=== PATIENT | male | born 1995 | race Caucasian/White ===

== ENCOUNTER 2017-06-30 23:40 | Emergency (ER) | payer BC ==
[2017-07-01] MEDS ORDERED: Aspirin Low Dose CHEW TAB* 81 MG PO ONE (01:00)
[2017-07-01] MEDS ORDERED: Pantoprazole TAB (NF) 40 MG TAB PO ONE (01:01)
[2017-07-01] MEDS ORDERED: Omeprazole CAP* 20 MG ONE (01:28)
[2017-07-01 01:42] LABS: Hematocrit 44 % (42-52); Hemoglobin 14.3 g/dl (14.0-18.0); Mean Corpuscular HGB Conc 33 g/dl (31-36); Mean Corpuscular Hemoglobin 29 pg (27-31); Mean Corpuscular Volume 88 fL (80-94); Mean Platelet Volume 9 um3 (7.4-10.4); Red Blood Count 4.98 10^6/ul (4.0-5.4); Red Cell Distribution Width 14 % (10.5-15)
[2017-07-01 01:58] LABS: Albumin 4.6 g/dL (3.2-5.2); BUN/Creatinine Ratio 13.2 (8-20); Calcium 10.1 mg/dL (8.6-10.3); EGFR African American 115.7 (>60); Potassium 3.6 mmol/L (3.5-5.0); Total Bilirubin 0.7 mg/dL (0.2-1.0); Total Protein 7.6 g/dL (6.4-8.9)
[2017-07-01] MEDS ORDERED: Omeprazole CAP* 20 MG PO ONE (02:00)
[2017-07-01 02:14] VITALS: BP 118/71
--- NOTE | 2017-07-01 04:42 | ED ---
Roland Mohr Rebecca, scribed for DarronDameon on 07/01/17 at 0054 . HPI Chest Pain - HPI Summary HPI Summary: Pt is a 21 y/o M who presents to ED c/o CP. Pain began yesterday at 1530 and is located in the lower sternal region. Pain is currently moderate, ranked 6/10 and characterized as burning. Sx aggravated and alleviated by nothing, unchanged by Tums and Maalox. PMHx fast resting heart rate. - History of Current Complaint Chief Complaint: EDGeneral Time Seen by Provider: 07/01/17 00:21 Hx Obtained From: Patient, Family/Appraiser [employer] Onset/Duration: Started Hours Ago, Still Present Time of Onset: 15:30 Current Severity: Moderate Pain Intensity: 6 Pain Scale Used: 0-10 Numeric Chest Pain Location: Lower Sternal Character: Burning Aggravating Factor(s): Nothing Alleviating Factor(s): Nothing Associated Signs and Symptoms: Positive: Chest Pain - Allergy/Home Medications Allergies/Adverse Reactions: Allergies Allergy/AdvReac Type Severity Reaction Status Date / Time Codeine Allergy Hives Verified 06/30/17 23:50 PMH/Surg Hx/FS Hx/Imm Hx Endocrine/Hematology History: Denies: Hx Diabetes Cardiovascular History: Reports: Other Cardiovascular Problems/Disorders - Hx fast resting heart rate Infectious Disease History: No Infectious Disease History: Denies: Traveled Outside the [place] in Last 30 Days - Family History Known Family History: Positive: Hypertension - Social History Alcohol Use: None Substance Use Type: Reports: None Smoking Status (MU): Never Smoked Tobacco Review of Systems Constitutional: Negative Eyes: Negative ENT: Negative Positive: Chest Pain Positive: Shortness Of Breath Positive: Abdominal Pain Genitourinary: Negative Musculoskeletal: Negative Skin: Negative Neurological: Negative Psychological: Normal All Other Systems Reviewed And Are Negative: Yes Physical Exam - Summary Physical Exam Summary: Appearance: Well appearing, no pain distress Skin: warm, dry, reflects adequate perfusion Head/face: normal Eyes: EOMI, THALIA ENT: normal Neck: supple, non-tender Respiratory: CTA, breath sounds present Cardiovascular: RRR, pulses symmetrical Abdomen: non-tender, soft Bowel: present Musculoskeletal: normal, strength/ROM intact Neuro: normal, sensory motor intact, A&Ox3 Triage Information Reviewed: Yes Vital Signs On Initial Exam: Initial Vitals Temp Pulse Resp BP Pulse Ox 98.5 F 71 18 123/72 100 06/30/17 23:46 06/30/17 23:46 06/30/17 23:46 06/30/17 23:46 06/30/17 23:46 Vital Signs Reviewed: Yes Diagnostics - Vital Signs Vital Signs Temp Pulse Resp BP Pulse Ox 06/30/17 23:46 98.5 F 71 18 123/72 100 - Laboratory Lab Results: Lab Results 07/01/17 07/01/17 07/01/17 Range/Units 01:27 01:27 01:27 WBC 12.0 H (3.5-10.8) 10^3/ul RBC 4.98 (4.0-5.4) 10^6/ul Hgb 14.3 (14.0-18.0) g/dl Hct 44 (42-52) % MCV 88 (80-94) fL MCH 29 (27-31) pg MCHC 33 (31-36) g/dl RDW 14 (10.5-15) % Plt Count 255 (150-450) 10^3/ul MPV 9 (7.4-10.4) um3 Neut % (Auto) 72.8 (38-83) % Lymph % (Auto) 16.9 L (25-47) % [place] % (Auto) 8.6 (1-9) % Eos % (Auto) 1.2 (0-6) % Baso % (Auto) 0.5 (0-2) % Absolute Neuts (auto) 8.7 H (1.5-7.7) 10^3/ul Absolute Lymphs (auto) 2.0 (1.0-4.8) 10^3/ul Absolute Monos (auto) 1.0 H (0-0.8) 10^3/ul Absolute Eos (auto) 0.1 (0-0.6) 10^3/ul Absolute Basos (auto) 0.1 (0-0.2) 10^3/ul Absolute Nucleated RBC 0 10^3/ul Nucleated RBC % 0 Sodium 136 (133-145) mmol/L Potassium 3.6 (3.5-5.0) mmol/L Chloride 101 (101-111) mmol/L Carbon Dioxide 27 (22-32) mmol/L Anion Gap 8 (2-11) mmol/L BUN 14 (6-24) mg/dL Creatinine 1.06 (0.67-1.17) mg/dL Est GFR ( Amer) 115.7 (>60) Est GFR (Non-Af Amer) 90.0 (>60) BUN/Creatinine Ratio 13.2 (8-20) Glucose 91 (70-100) mg/dL Lactic Acid 0.9 (0.5-2.0) mmol/L Calcium 10.1 (8.6-10.3) mg/dL Total Bilirubin 0.70 (0.2-1.0) mg/dL AST 18 (13-39) U/L ALT 16 (7-52) U/L Alkaline Phosphatase 61 (34-104) U/L Troponin I 0.00 (<0.04) ng/mL Total Protein 7.6 (6.4-8.9) g/dL Albumin 4.6 (3.2-5.2) g/dL Globulin 3.0 (2-4) g/dL Albumin/Globulin Ratio 1.5 (1-3) Lipase 34 (11.0-82.0) U/L Result Diagrams: 07/01/17 01:27 07/01/17 01:27 Lab Statement: Any lab studies that have been ordered have been reviewed, and results considered in the medical decision making process. - Radiology CXR Xray Interpretation: No Acute Changes Radiology Interpretation Completed By: ED Physician - EKG 0134 Cardiac Rate: NL - 66 bpm EKG Rhythm: Sinus Rhythm EKG Interpretation: NO acute changes Re-Evaluation - Re-Evaluation First Eval Re-Evaluation Time: 02:03 Comment: Discussed results with pt. Chest Pain Course/Dx - Course Assessment/Plan: Pt is a 21 y/o M who presents to ED c/o CP since yesterday at 1530 and is located in the lower sternal region. Pain is currently moderate, ranked 6/10 and characterized as burning. Sx unchanged by Tums and Maalox. PMHx fast resting heart rate. CXR reveals no acute findings. EKG is sinus rhythm with no acute findings. Troponin of 0.00. In the ED course, pt was given Prilosec and ASA. Pt will be D/C to home with Dx of atypical chest pain, r/o GERD and questionable GERD with Rx for Protonix with a follow up with GI and his PCP. He is agreeable with this plan. Allergy noted. Pt medications reviewed. - Chest Pain Differential Diagnosis/HQI/PQRI: Acute SD, Chest Wall, GI Disease - Diagnoses Provider Diagnoses: Atypical chest pain, questionable GERD, r/o GERD Discharge - Discharge Plan Condition: Stable Disposition: HOME Prescriptions: Pantoprazole TAB (NF) [Protonix TAB (NF)] 40 mg PO DAILY #30 tab Patient Education Materials: Chest Pain (ED), Gastroesophageal Reflux Disease ( ED) Referrals: Non Staff,Doctor [Primary Care Provider] - 3 Days Mal Tony MD [Medical Doctor] - Additional Instructions: RETURN TO ED FOR ANY RETURNING OR WORSENING SYMPTOMS. The documentation as recorded by the Roland mcgraw Rebecca accurately reflects the service I personally performed and the decisions made by Darron trujillo Emmanuel.
--- NOTE | 2017-07-01 08:10 | RAD ---
INDICATION: Chest pain COMPARISON: None TECHNIQUE: PA and lateral dual-energy views were obtained. FINDINGS: Bones/Soft Tissues: There are no acute bony findings. Cardiomediastinal: The cardiomediastinal silhouette is normal. Lungs: There are no infiltrates. Pleura: There are no pleural effusions. Other: None IMPRESSION: NO ACTIVE DISEASE.
== END 2017-07-01 02:14 | disposition home or self-care (01) ==
LOC: ED 23:40
DX: R07.89 Other chest pain (principal); R06.02 Shortness of breath; R10.9 Unspecified abdominal pain
CPT/HCPCS: 36415; 71020; 80053; 83605; 83690; 84484; 85025; 93005; 99283; A9270-GY

== ENCOUNTER 2017-10-04 00:40 | Emergency (ER) | payer BC ==
[2017-10-04] MEDS ORDERED: Lidocaine 2% VISCOUS* 15 ML UDC PO ONE (02:12)
[2017-10-04] MEDS ORDERED: Al Hydrox/Mg Hydrox/Simet LIQ* 30 ML UDC PO ONE (02:12)
[2017-10-04] MEDS ORDERED: Omeprazole CAP* 20 MG PO ONE (02:13)
--- NOTE | 2017-10-04 02:19 | ED ---
GI/ HPI - HPI Summary HPI Summary: Patient here with "heartburn" - epigastric pain that radiates up into his chest. Reports he ate pizza with lots of meat on it last night at [employer]. This is when his symptoms started and have been persistent since. He's tried eating Tums without relief. He reports he has a history of GERD and does not take a PPI although he was encouraged to f/u w/ a GI provider. He has tried Maalox in the past without much relief. Denies shortness of breath, cough, sore throat, jaw pain, arm pain, fatigue, nausea, vomiting, diarrhea, hematochezia. Admits he drinks lots of coffee, ETOH on the weekends and does not use tobacco products. Does not use NSAIDs. - History of Current Complaint Chief Complaint: EDAbdPain Time Seen by Provider: 10/04/17 01:58 Stated Complaint: HEARTBURN Hx Obtained From: Patient Pain Intensity: 7 - Allergy/Home Medications Allergies/Adverse Reactions: Allergies Allergy/AdvReac Type Severity Reaction Status Date / Time MS Codeine [Codeine] Allergy Hives Verified 06/30/17 23:50 PMH/Surg Hx/FS Hx/Imm Hx Previously Healthy: Yes Endocrine/Hematology History: Denies: Hx Anticoagulant Therapy, Hx Blood Disorders, Hx Diabetes, Hx Anemia , Hx Unexplained Bleeding Cardiovascular History: Reports: Other Cardiovascular Problems/Disorders - Hx fast resting heart rate - takes metoprolol GI History: Reports: Hx Gastroesophageal Reflux Disease - no treatment - continues to eat foods intermittently that trigger his GERD Infectious Disease History: No Infectious Disease History: Denies: Traveled Outside the [place] in Last 30 Days - Family History Known Family History: Positive: Hypertension - Social History Occupation: Student Lives: Dormitory/Roommates Alcohol Use: Occasionally Hx Substance Use: No Substance Use Type: Reports: None Hx Tobacco Use: No Smoking Status (MU): Never Smoked Tobacco Review of Systems Constitutional: Negative Eyes: Negative ENT: Negative Cardiovascular: Negative Respiratory: Negative Positive: Abdominal Pain Positive: no symptoms reported Musculoskeletal: Negative Skin: Negative Neurological: Negative Psychological: Normal All Other Systems Reviewed And Are Negative: Yes Physical Exam Triage Information Reviewed: Yes Vital Signs On Initial Exam: Initial Vitals Temp Pulse Resp BP Pulse Ox 97.8 F 70 14 123/65 99 10/04/17 01:12 10/04/17 01:12 10/04/17 01:12 10/04/17 01:12 10/04/17 01:12 Vital Signs Reviewed: Yes Appearance: Positive: Well-Appearing, Well-Nourished, Pain Distress - Mild Skin: Positive: Warm, Skin Color Reflects Adequate Perfusion, Dry Head/Face: Positive: Normal Head/Face Inspection Eyes: Positive: Normal, EOMI, Conjunctiva Clear - Anicteric sclera ENT: Positive: Normal ENT inspection, Hearing grossly normal, Pharynx normal - Mucosa moist Neck: Positive: Supple Respiratory/Lung Sounds: Positive: Clear to Auscultation, Breath Sounds Present Cardiovascular: Positive: Normal, RRR, S1, S2 Abdomen Description: Positive: Soft, Other: - Epigastric and left upper quadrant tenderness to palpation; rectal exam neg for blood Bowel Sounds: Positive: Present Musculoskeletal: Positive: Normal, Strength/ROM Intact Neurological: Positive: Normal, Sensory/Motor Intact, Alert, Oriented to Person Place, Time, CN Intact II-III Psychiatric: Positive: Normal - Concerned but pleasant and cooperative Diagnostics - Vital Signs Vital Signs Temp Pulse Resp BP Pulse Ox 10/04/17 01:12 97.8 F 70 14 123/65 99 - Laboratory Result Diagrams: 10/04/17 03:30 10/04/17 03:30 Lab Statement: Any lab studies that have been ordered have been reviewed, and results considered in the medical decision making process. Re-Evaluation - Re-Evaluation First Eval Change: Worse - pt reports pain is worse since GI cocktail GIGU Course/Dx - Course Course Of Treatment: Patient here with epigastric pain radiating into chest since last night after eating greasy meal pizza from [employer]. Reports he has a history of GERD and this feels similar. Has been trying Tums without relief. Reports he has had GERD in the past and was told to follow up with a hide house supervisor. He has not done so yet. He also does not take PPIs. He drinks copious amounts of coffee. Denies fevers chills nausea vomiting diarrhea. Has had normal urinary void and bowel movements without hematochezia or dark tarry stools. Also denies use of NSAIDs. Given his history, he was trialed on a course of Prilosec with GI cocktail. Patient reports his pain became much worse after ingesting these medications so no abdominal workup was ordered. + Vazquez's sign. Diff dx: ulcer, cholelithiasis, pancreatitis, hiatal hernia, GI bleed (unlikely acute given stable vitals). He is in stable condition and will be signed out to Dr. Acevedo. - Diagnoses Provider Diagnoses: Abdominal pain Discharge - Discharge Plan Condition: Stable Disposition: OTHER Discharge Disposition Comment: signed out to Dr. Acevedo Prescriptions: Omeprazole CAP* [Prilosec CAP* 20 MG] 20 mg PO BID #28 cap. Patient Education Materials: Gastroesophageal Reflux Disease (ED) Referrals: [facility] @ [Outside] Additional Instructions: GERD (Gastro-Esophageal Reflux Disease aka. HEARTBURN) 1. Keep a food and beverage journal. It can help you track and avoid triggers. Once identified, avoid these. Common items include: chocolate, mint, coffee, alcohol these relax the upper sphincter allowing acid to splash up and cause pain. Others include: acidic (ie citrus, etc), spicy foods, smoking and NSAIDs (advil, ibuprofen, aspirin, aleve, naproxyn) these directly irritate the lining of the stomach 2. Eat small, frequent meals. Overeating at one setting stretches your stomach and puts pressure on the upper sphincter and can push it open enough to allow acid to creep up and cause pain. 3. Wear loose clothing and maintain a healthy weight. Tight pants/shirt and/ or an enlarged abdomen push on your stomach, reducing the amount of space the stomach may stretch while eating. 4. Avoid lying down after eating 5. Stress can increase stomach acid as well as increase restriction of abdominal tension if youre always holding you muscles tight. Practice relaxation techniques such as breathing exercises, guided imagery, regular physical activity to burn off anxiety/stress. 6. Sip chamomile tea (with or without honey). It can help soothe inflamed tissue in the esophagus. 7. Try sleeping on your left side. This may help move acid away from the entrance of the esophagus. 8. You may also try eating a yogurt a day or a probiotic supplement (ie, acidophilus, casei, bifidus, etc) if you have an overgrowth of bad bacteria from too many antibiotics over a lifetime, this may help replace good bacteria and reduce stomach dis-ease Follow-up with [facility] this week. Call today to schedule an appointment. You may need to follow-up with a hide house supervisor - discuss with provider at [facility]. *If pain is worse or you develop vomiting, bloody vomit, bloody or vinnie tarry stool, return to ED
[2017-10-04] MEDS ORDERED: Morphine INJ* 4 MG/ML 1 ML CARPUJECT IV ONE (03:39)
[2017-10-04] MEDS ORDERED: Ondansetron INJ* 2 MG/ML VIAL IV ONE (03:39)
[2017-10-04 04:12] LABS: ABS Basophils 0.1 10^3/ul (0-0.2); ABS Eosinophils 0.3 10^3/ul (0-0.6); ABS Monocytes 0.8 10^3/ul (0-0.8); ABS Nucleated RBC 0 10^3/ul; Eosinophil % 2.8 % (0-6); Hematocrit 46 % (42-52); Hemoglobin 15.2 g/dl (14.0-18.0); Mean Corpuscular HGB Conc 33 g/dl (31-36); Mean Corpuscular Hemoglobin 28 pg (27-31); Mean Corpuscular Volume 86 fL (80-94); Mean Platelet Volume 9 um3 (7.4-10.4); Nucleated Red Blood Cells % 0.1; Platelet Count 272 10^3/ul (150-450); Red Blood Count 5.35 10^6/ul (4.0-5.4); Red Cell Distribution Width 15 % (10.5-15); White Blood Count 9.1 10^3/ul (3.5-10.8)
[2017-10-04] MEDS ORDERED: NS 0.9% 1000 ML* 1,000 ML IV ONE (04:44)
--- NOTE | 2017-10-04 07:05 | PN ---
Kanika Mohr Edward, scribed for Caleb Acevedo MD on 10/04/17 at 0648 . Progress Note - Progress Note Date of Service: 10/04/17 Note: Pt signed out by Cassandra Corona. Pt will be signed out to the morning attending pending Gallbladder US to r/o gall stones. Dx - ABD pain. The documentation as recorded by the liibKanika vera Edward accurately reflects the service I personally performed and the decisions made by Curtis trujillo Abdul, MD.
[2017-10-04] MEDS ORDERED: Potassium Chlor TAB* 20 MEQ TAB.ER PO ONE (07:22)
[2017-10-04 07:47] LABS: Urine Appearance Clear; Urine Blood Negative (Negative); Urine Color Yellow; Urine Ketones Trace (Negative); Urine Protein Negative (Negative); Urine Specific Gravity 1.008 (1.010-1.030); Urine Urobilinogen Negative (Negative)
--- NOTE | 2017-10-04 08:32 | RAD ---
INDICATION: Positive Vazquez sign, right upper quadrant pain. COMPARISON: There are no prior studies available for comparison. TECHNIQUE: Multiple real-time images of the right upper quadrant were obtained. FINDINGS: The gallbladder appear normal. No gallbladder wall thickening or pericholecystic fluid is present. No intra or extrahepatic ductal distention is present. The common bile duct measured 0.3 cm in diameter. The liver is normal in size without significant focal abnormality. The pancreas is partially obscured by overlying bowel gas. The right kidney is normal in size without evidence for hydronephrosis. IMPRESSION: NEGATIVE EXAM.
[2017-10-04 08:54] VITALS: BP 124/74
--- NOTE | 2017-10-04 08:57 | ED ---
Elvis Mohr Angela, scribed for Wyatt Covarrubias MD on 10/04/17 at 0725 . Progress - Progress Note Progress Note: This pt was signed out by Dr. Acevedo, pending disposition, awaiting gallbladder US. Pt is a 22 y/o male presenting to [facility] c/o heartburn, worsening since last night. He reports he has a history of GERD but does not take a PPI Physical Exam: VITAL SIGNS: Reviewed. GENERAL: Patient is a well-developed and nourished male who is lying comfortable in the stretcher. Patient is not in any acute respiratory distress. HEAD AND FACE: Normocephalic and atraumatic. EYES: PERRLA, EOMI x 2, No injected conjunctiva. EARS: Hearing grossly intact. Ear canals and tympanic membranes are WNL. MOUTH: Oropharynx within normal limits. NECK: Supple, trachea is midline, no adenopathy, no JVD. CHEST: Symmetric, no tenderness at palpation LUNGS: Clear to auscultation bilaterally. No wheezing or crackles. CVS: RRR, S1 and S2 present, no murmurs or gallops appreciated. ABDOMEN: Soft. Mid egigastric tenderness. No signs of distention. Positive bowel sounds. No rebound no guarding, and no masses palpated. No abdominal bruit or pulsations. EXTREMITIES: FROM in all major joints, no edema, no cyanosis or clubbing. NEURO: Alert and oriented x 3. No acute neurological deficits. Speech is normal. SKIN: Dry and warm Gallbladder US, as read by radiologist: IMPRESSION: Negative exam. Dr. Covarrubias has reviewed this radiology report. Pt will be discharged to home, in stable condition, with a diagnosis of epigastric pain. I discussed all the findings and test results with the patient. Patient was instructed to return to the emergency room immediately if any of the symptoms return or worsens. Plan of care was discussed with the patient and understands and agrees. All questions were answered at patient satisfaction. There were no further complaints or concerns. Lung exam before discharge: CTA B/L. Good air exchange. No wheezing or crackles heard. CVS: S1 and S2 present. No murmurs appreciated. Patient is alert and oriented x 3. Patient is hemodynamically stable. Patient will be discharged home with follow up PCP in the next 2-3 days Condition: Stable Disposition: Home Re-Evaluation - Re-Evaluation First Eval Re-Evaluation Time: 07:33 Comment: He reports his pain is "fine" currently. Course/Dx - Course Course Of Treatment: Pt was signed out by Dr. Acevedo, he requested follow up on the ultrasound of the RUQ report to rule out cholelithiasis or cholecystitis. US of gallbladder is negative. Pts symptoms has improved, therefore he will be discharged home with follow up from his PCP. - Diagnoses Provider Diagnoses: Epigastric pain The documentation as recorded by the Elvis mcgraw Angela accurately reflects the service I personally performed and the decisions made by me, Wyatt Covarrubias MD.
== END 2017-10-04 08:53 | disposition home or self-care (01) ==
LOC: ED 00:40
DX: R10.13 Epigastric pain (principal)
CPT/HCPCS: 36415; 76705; 80053; 81003; 82272; 83605; 83690; 85025; 86140; 96374; 96375; 99284; A9270-GY; J2270; J2405

== ENCOUNTER 2017-12-23 18:12 | Emergency (ER) | payer BC ==
[2017-12-23] MEDS ORDERED: Lidocaine 2% VISCOUS* 15 ML UDC PO ONE (21:05)
[2017-12-23] MEDS ORDERED: Benzonatate CAP* 100 MG PO ONE (21:05)
--- NOTE | 2017-12-23 22:04 | ED ---
Respiratory - HPI Summary HPI Summary: Complains of GONSALEZ, sore throat, cough, facial pressure, nasal congestion intermittently 1 month. Has been to UC twice, first time 2 weeks ago, once this past Wednesday. Currently on cefuroxime, which is second course of antibiotics. Last contact exposure, fever, ear pain, CP, SOB, N/V/D, abdominal pain, change in urinary BM. Medical history is chronic tachycardia controlled by metoprolol. - History of Current Complaint Chief Complaint: EDGeneral Stated Complaint: COUGH/CONGESTION/SORE THROAT Time Seen by Provider: 12/23/17 20:02 Hx Obtained From: Patient Onset/Duration: Gradual Onset, Lasting Weeks Timing: Intermittent Episodes Lasting: Initial Severity: Moderate Current Severity: Moderate Pain Intensity: 6 Character: Cough (Productive) Sputum Amount: Scant Sputum Color: Green Aggravating Factor(s): Nothing Associated Signs and Symptoms: Nasal Congestion - Risk Factors Status Asthmaticus Risk Factors: Negative Pulmonary Embolism Risk Factors: Negative Cardiac Risk Factors: Negative Pseudomonas Risk Factors: Negative Tuberculosis Risk Factors: Negative - Allergy/Home Medications Allergies/Adverse Reactions: Allergies Allergy/AdvReac Type Severity Reaction Status Date / Time codeine Allergy Hives Verified 12/23/17 18:21 Home Medications: Home Medications Metoprolol Succinate 25 mg PO DAILY 12/23/17 [History Confirmed 12/23/17] ceFUROXime TAB(*) 250 mg PO BID 12/23/17 [History Confirmed 12/23/17] PMH/Surg Hx/FS Hx/Imm Hx Endocrine/Hematology History: Denies: Hx Anticoagulant Therapy, Hx Blood Disorders, Hx Diabetes, Hx Anemia , Hx Unexplained Bleeding Cardiovascular History: Reports: Other Cardiovascular Problems/Disorders - Hx fast resting heart rate - takes metoprolol GI History: Reports: Hx Gastroesophageal Reflux Disease - no treatment - continues to eat foods intermittently that trigger his GERD Infectious Disease History: No Infectious Disease History: Denies: Traveled Outside the [place] in Last 30 Days - Family History Known Family History: Positive: Hypertension - Social History Alcohol Use: Occasionally Hx Substance Use: No Substance Use Type: Reports: None Hx Tobacco Use: No Smoking Status (MU): Never Smoked Tobacco Review of Systems Constitutional: Negative Eyes: Negative Positive: Sore Throat, Nasal Discharge Cardiovascular: Negative Positive: Cough Gastrointestinal: Negative Genitourinary: Negative Musculoskeletal: Negative Skin: Negative Neurological: Negative Psychological: Normal All Other Systems Reviewed And Are Negative: Yes Physical Exam Triage Information Reviewed: Yes Vital Signs On Initial Exam: Initial Vitals Temp Pulse Resp BP Pulse Ox 98.6 F 129 22 116/58 98 12/23/17 18:21 12/23/17 18:21 12/23/17 18:21 12/23/17 18:21 12/23/17 18:21 Vital Signs Reviewed: Yes Appearance: Positive: Well-Appearing Skin: Positive: Warm Head/Face: Positive: Normal Head/Face Inspection Eyes: Positive: Normal ENT: Positive: Pharyngeal erythema, Nasal congestion, Nasal drainage, TMs normal , Sinus tenderness. Negative: Tonsillar exudate Neck: Positive: Supple Respiratory/Lung Sounds: Positive: Clear to Auscultation Cardiovascular: Positive: Normal Abdomen Description: Positive: Nontender Musculoskeletal: Positive: Normal Neurological: Positive: Normal Psychiatric: Positive: Normal AVPU Assessment: Alert - [place] Coma Scale Best Eye Response: 4 - Spontaneous Best Motor Response: 6 - Obeys Commands Best Verbal Response: 5 - Oriented Coma Scale Total: 15 Diagnostics - Vital Signs Vital Signs Temp Pulse Resp BP Pulse Ox 12/23/17 18:21 98.6 F 129 22 116/58 98 - Laboratory Lab Statement: Any lab studies that have been ordered have been reviewed, and results considered in the medical decision making process. Disposition - Course Course Of Treatment: Vital signs within normal limits. currently on antibiotics. - Diagnoses Provider Diagnoses: Respiratory infection Discharge - Sign-Out/Discharge Documenting (check all that apply): Discharge/Admit/Transfer - Discharge Plan Condition: Stable Disposition: HOME Prescriptions: Benzonatate CAP* [Tessalon 100 MG CAP*] 200 mg PO TID 5 Days #30 cap Patient Education Materials: Upper Respiratory Infection (ED), Viral Syndrome ( ED) Referrals: Non Staff,Doctor [Primary Care Provider] - Additional Instructions: Continue to take antibiotics. Drink plenty of fluids and rest. Follow-up with primary care. - Billing Disposition and Condition Condition: STABLE Disposition: HOME
[2017-12-23 23:00] VITALS: BP 123/84
== END 2017-12-23 22:59 | disposition home or self-care (01) ==
LOC: ED 18:12
DX: J98.8 Other specified respiratory disorders (principal); R51 Headache; J02.9 Acute pharyngitis, unspecified; R05 Cough; R09.81 Nasal congestion
CPT/HCPCS: 87502; 99282; A9270-GY